=== PATIENT | female | born 1950 | race Caucasian/White ===

== ENCOUNTER 2020-08-06 12:46 | Inpatient (IN) | payer MEDICARE, OTHER ==
--- NOTE | 2020-08-06 13:35 | ED ---
General Adult HPI - General Chief complaint: Upper Respiratory Infection Stated complaint: Covid exposure, SOB Time Seen by Provider: 08/06/20 12:56 Source: patient, RN notes reviewed Mode of arrival: ambulatory Limitations: no limitations - History of Present Illness Initial comments: This is a 69-year-old female who was sent over for evaluation for multiple issues to percussion and fever cough shortness breath or past several days after exposure to Covid 19. Additionally she's had trouble with confusion and disorientation recently over last several weeks trouble with memory issues decreased oral intake today she also has some left arm pain which is intermittent sharp in nature she points to the lateral aspect of the upper arm over the tricep area. No medial tenderness no edema. She does states she had a cough with some clear phlegm. No other complaints or modifying factors at this time - Related Data Home Medications Medication Instructions Recorded Confirmed Levothyroxine Sodium [Synthroid] 175 mcg PO DAILY 06/25/19 08/06/20 Albuterol Inhaler [Ventolin Hfa 2 puff INHALATION RT-Q4H PRN 08/06/20 08/06/20 Inhaler] Fluticasone Nasal [place] [Flonase 2 spr EA NOSTRIL BID PRN 08/06/20 08/06/20 Nasal [place]] Allergies Allergy/AdvReac Type Severity Reaction Status Date / Time Penicillins Allergy Unknown Verified 08/06/20 14:58 Childhood Review of Systems ROS Statement: Those systems with pertinent positive or pertinent negative responses have been documented in the HPI. ROS Other: All systems not noted in ROS Statement are negative. Past Medical History Past Medical History: Asthma, Thyroid Disorder Additional Past Medical History / Comment(s): short term memory loss History of Any Multi-Drug Resistant Organisms: None Reported Past Surgical History: Cholecystectomy, Hysterectomy Past Anesthesia/Blood Transfusion Reactions: Motion Sickness Past Psychological History: Depression Smoking Status: Former smoker Past Alcohol Use History: Occasional Past Drug Use History: None Reported - Past Family History Mother Family Medical History: No Reported History General Exam - General Exam Comments Initial Comments: This a well-developed well-nourished awake alert oriented 3 female slightly slow to respond Limitations: no limitations General appearance: alert, in no apparent distress Head exam: Present: atraumatic, normocephalic, normal inspection Eye exam: Present: normal appearance, PERRL, EOMI. Absent: scleral icterus, conjunctival injection, periorbital swelling ENT exam: Present: mucous membranes dry Neck exam: Present: normal inspection. Absent: tenderness, meningismus, lymphadenopathy Respiratory exam: Present: normal lung sounds bilaterally. Absent: respiratory distress, wheezes, rales, rhonchi, stridor Cardiovascular Exam: Present: regular rate, normal rhythm, normal heart sounds. Absent: systolic murmur, diastolic murmur, rubs, gallop, clicks GI/Abdominal exam: Present: soft, normal bowel sounds. Absent: distended, tenderness, guarding, rebound, rigid Extremities exam: Present: normal inspection, full ROM, normal capillary refill. Absent: tenderness, pedal edema, joint swelling, calf tenderness Back exam: Present: normal inspection Neurological exam: Present: alert, oriented X3, CN II-XII intact Psychiatric exam: Present: normal affect, normal mood Skin exam: Present: warm, dry, intact, normal color. Absent: rash Course Vital Signs 08/06/20 08/06/20 08/06/20 12:47 15:00 15:39 Temperature 102.5 F H 102.9 F H Pulse Rate 80 90 Respiratory 22 20 Rate Blood Pressure 128/75 146/74 O2 Sat by Pulse 97 99 Oximetry 08/06/20 16:00 Temperature Pulse Rate 84 Respiratory 20 Rate Blood Pressure 147/75 O2 Sat by Pulse 96 Oximetry EKG Findings - EKG Results: EKG: interpreted by ELENA, sinus rhythm (Sinus rhythm rate 79. Interval 188 QRS duration 78 QT/QTC 374/428 nonspecific anterior configuration) Medical Decision Making - Medical Decision Making I did discuss Pfizer the patient family and with Dr. Adrian. Patient will be admitted - Lab Data Result diagrams: 08/06/20 13:57 08/06/20 13:57 Lab Results 08/06/20 08/06/20 08/06/20 Range/Units 12:58 13:57 13:57 WBC 4.3 (3.8-10.6) k/uL RBC 4.77 (3.80-5.40) m/uL Hgb 14.6 (11.4-16.0) gm/dL Hct 42.3 (34.0-46.0) % MCV 88.6 (80.0-100.0) fL MCH 30.6 (25.0-35.0) pg MCHC 34.5 (31.0-37.0) g/dL RDW 12.8 (11.5-15.5) % Plt Count 164 (150-450) k/uL MPV 8.2 Neutrophils % 73 % Lymphocytes % 19 % Monocytes % 5 % Eosinophils % 0 % Basophils % 1 % Neutrophils # 3.1 (1.3-7.7) k/uL Lymphocytes # 0.8 L (1.0-4.8) k/uL Monocytes # 0.2 (0-1.0) k/uL Eosinophils # 0.0 (0-0.7) k/uL Basophils # 0.1 (0-0.2) k/uL PT 10.7 (9.0-12.0) sec INR 1.0 (<1.2) APTT 27.9 (22.0-30.0) sec D-Dimer 0.42 (<0.60) mg/L FEU Sodium (137-145) mmol/L Potassium (3.5-5.1) mmol/L Chloride (98-107) mmol/L Carbon Dioxide (22-30) mmol/L Anion Gap mmol/L BUN (7-17) mg/dL Creatinine (0.52-1.04) mg/dL Est GFR (CKD-EPI)AfAm (>60 ml/min/1.73 sqM) Est GFR (CKD-EPI)NonAf (>60 ml/min/1.73 sqM) Glucose (74-99) mg/dL Plasma Lactic Acid Mitch (0.7-2.0) mmol/L Calcium (8.4-10.2) mg/dL Magnesium (1.6-2.3) mg/dL Total Bilirubin (0.2-1.3) mg/dL AST (14-36) U/L ALT (4-34) U/L Alkaline Phosphatase (38-126) U/L Lactate Dehydrogenase (313-618) U/L C-Reactive Protein (<10.0) mg/L Total Protein (6.3-8.2) g/dL Albumin (3.5-5.0) g/dL Coronavirus (PCR) Detected A (Not Detectd) Influenza Type A RNA (Not Detectd) Influenza Type B (PCR) (Not Detectd) 08/06/20 08/06/20 08/06/20 Range/Units 13:57 13:57 13:57 WBC (3.8-10.6) k/uL RBC (3.80-5.40) m/uL Hgb (11.4-16.0) gm/dL Hct (34.0-46.0) % MCV (80.0-100.0) fL MCH (25.0-35.0) pg MCHC (31.0-37.0) g/dL RDW (11.5-15.5) % Plt Count (150-450) k/uL MPV Neutrophils % % Lymphocytes % % Monocytes % % Eosinophils % % Basophils % % Neutrophils # (1.3-7.7) k/uL Lymphocytes # (1.0-4.8) k/uL Monocytes # (0-1.0) k/uL Eosinophils # (0-0.7) k/uL Basophils # (0-0.2) k/uL PT (9.0-12.0) sec INR (<1.2) APTT (22.0-30.0) sec D-Dimer (<0.60) mg/L FEU Sodium 134 L (137-145) mmol/L Potassium 4.3 (3.5-5.1) mmol/L Chloride 99 (98-107) mmol/L Carbon Dioxide 26 (22-30) mmol/L Anion Gap 9 mmol/L BUN 10 (7-17) mg/dL Creatinine 0.63 (0.52-1.04) mg/dL Est GFR (CKD-EPI)AfAm >90 (>60 ml/min/1.73 sqM) Est GFR (CKD-EPI)NonAf >90 (>60 ml/min/1.73 sqM) Glucose 146 H (74-99) mg/dL Plasma Lactic Acid Mitch 1.4 (0.7-2.0) mmol/L Calcium 9.4 (8.4-10.2) mg/dL Magnesium 1.5 L (1.6-2.3) mg/dL Total Bilirubin 0.4 (0.2-1.3) mg/dL AST 39 H (14-36) U/L ALT 27 (4-34) U/L Alkaline Phosphatase 50 (38-126) U/L Lactate Dehydrogenase 670 H (313-618) U/L C-Reactive Protein 59.1 H (<10.0) mg/L Total Protein 7.5 (6.3-8.2) g/dL Albumin 4.5 (3.5-5.0) g/dL Coronavirus (PCR) (Not Detectd) Influenza Type A RNA Not Detected (Not Detectd) Influenza Type B (PCR) Not Detected (Not Detectd) - Radiology Data Radiology results: report reviewed, image reviewed Disposition Clinical Impression: COVID-19, Viral pneumonia, Febrile illness, acute, Hypomagnesemia, Failure to thrive Disposition: ADMITTED IP TO THIS [facility] Condition: Fair Referrals: Princess Delvalle MD [Primary Care Provider] - 1-2 days
--- NOTE | 2020-08-06 13:51 | XR ---
EXAMINATION TYPE: XR chest 1V portable DATE OF EXAM: 08/06/2020 COMPARISON: NONE HISTORY: Shortness of breath and cough TECHNIQUE: Single frontal view of the chest is obtained. FINDINGS: There is questionable patchy density at the lung bases, no pleural effusion or pneumothora x seen. The cardiac silhouette size is within normal limits. The osseous structures are intact. IMPRESSION: Correlate for pneumonia
[2020-08-06] MEDS ORDERED: ACETAMINOPHEN TAB 325 MG TAB PO STA (14:14)
[2020-08-06 14:25] LABS: Basophils # (A) 0.1 k/uL (0-0.2); Basophils % (A) 1 %; Eosinophils % (A) 0 %; HCT 42.3 % (34.0-46.0); HGB 14.6 gm/dL (11.4-16.0); Lymphocytes # (A) 0.8 k/uL (1.0-4.8); Lymphocytes % (A) 19 %; MCH 30.6 pg (25.0-35.0); MCHC 34.5 g/dL (31.0-37.0); MCV 88.6 fL (80.0-100.0); Mean Platelet Volume 8.2; Monocytes # (A) 0.2 k/uL (0-1.0); Monocytes % (A) 5 %; Neutrophils # (A) 3.1 k/uL (1.3-7.7); Neutrophils % (A) 73 %; Platelet Count 164 k/uL (150-450); RBC 4.77 m/uL (3.80-5.40); RDW 12.8 % (11.5-15.5); WBC 4.3 k/uL (3.8-10.6)
[2020-08-06 14:40] LABS: D-Dimer 0.42 mg/L FEU (<0.60); Partial Thromboplastin Time 27.9 sec (22.0-30.0); Prothrombin Time 10.7 sec (9.0-12.0)
[2020-08-06 14:43] LABS: ALT 27 U/L (4-34); AST 39 U/L (14-36); African American GFR (CKD) >90 (>60 ml/min/1.73 sqM); Albumin 4.5 g/dL (3.5-5.0); Alkaline Phosphatase 50 U/L (38-126); Anion Gap 9 mmol/L; Blood Urea Nitrogen 10 mg/dL (7-17); C Reactive Protein 59.1 mg/L (<10.0); Calcium 9.4 mg/dL (8.4-10.2); Carbon Dioxide 26 mmol/L (22-30); Chloride 99 mmol/L (98-107); Glucose 146 mg/dL (74-99); LDH 670 U/L (313-618); Magnesium 1.5 mg/dL (1.6-2.3); Non-African American GFR(CKD) >90 (>60 ml/min/1.73 sqM); Potassium 4.3 mmol/L (3.5-5.1); Sodium 134 mmol/L (137-145); Total Bilirubin 0.4 mg/dL (0.2-1.3); Total Protein 7.5 g/dL (6.3-8.2)
--- NOTE | 2020-08-06 14:52 | CT ---
EXAMINATION TYPE: CT brain wo con DATE OF EXAM: 08/06/2020 COMPARISON: None HISTORY: altered mental status CT DLP: 1045.[address] of the brain was performed. The ventricles, basal cisterns and sulci overlying the cerebral convexities demonstrate mild enlargem ent. There is no evidence for intracranial hemorrhage or sulcal effacement. There is decreased attenuation about the periventricular white matter and deep white matter of both c erebral hemispheres, compatible with chronic small vessel ischemia. Differential diagnosis does inclu de demyelination. No mass effects are seen.No midline shift. Osseous calvarium is intact. If symptoms persist consider MRI. IMPRESSION: 1. Age related atrophic and chronic small vessel ischemic change without acute intracranial process s een at this time.
[2020-08-06] MEDS ORDERED: ONDANSETRON 4 MG/2 ML VIAL IVP STA (15:06)
[2020-08-06] MEDS ORDERED: MAGNESIUM SULFATE-D5W PMX 1 GM in DEXTROSE/WATER 1 100ML.BAG IVPB ONE (16:01)
[2020-08-06] MEDS ORDERED: NALOXONE 0.4 MG/ML 1 ML VIAL IV PRN (17:54)
[2020-08-06] MEDS ORDERED: FLUTICASONE 50MCG/SPRAY NASAL 16GM EA NOSTRIL PRN (17:56)
[2020-08-06] MEDS: SODIUM CHLORIDE 0.9% 1,000 ML IV SCH (18:40)
[2020-08-06] MEDS: ACETAMINOPHEN TAB 325 MG TAB PO PRN (21:39)
[2020-08-06 21:59] LABS: Ferritin 370.2 ng/mL (10.0-291.0)
[2020-08-06] MEDS ORDERED: ONDANSETRON 4 MG/2 ML VIAL IVP PRN (22:32)
[2020-08-06] MEDS: CYCLOBENZAPRINE 10 MG TAB PO PRN (23:10)
[2020-08-07] MEDS: LEVOTHYROXINE 88 MCG TAB PO SCH (06:15)
[2020-08-07 07:49] LABS: Appearance,Urine Clear (Clear); Bilirubin,Urine Negative (Negative); Blood,Urine Negative (Negative); Color,Urine Light Yellow; Glucose,Urine (UA) Negative (Negative); Ketones,Urine Negative (Negative); Leukocyte Esterase,Urine Negative (Negative); Nitrite,Urine Negative (Negative); PH, Urine 6.5 (5.0-8.0); Protein,Urine Negative (Negative); Specific Gravity,Urine 1.005 (1.001-1.035); Urobilinogen,Urine <2.0 mg/dL (<2.0)
[2020-08-07] MEDS: ACETAMINOPHEN TAB 325 MG TAB PO PRN ×3 (07:55→22:46)
[2020-08-07] MEDS: SODIUM CHLORIDE 0.9% 1,000 ML IV SCH ×2 (07:58→20:10)
[2020-08-07] MEDS ORDERED: AZITHROMYCIN 500 MG TAB PO STA (09:16)
[2020-08-07] MEDS: CHOLECALCIFEROL 25 MCG (1000 IU) TABLET PO SCH (11:11)
[2020-08-07] MEDS: DEXAMETHASONE SOD PHOSPHATE 10 MG/ML 1 ML VIAL IV SCH (11:12)
[2020-08-07] MEDS: ASCORBIC ACID 500 MG TAB PO SCH ×2 (11:12→20:12)
[2020-08-07] MEDS: CYCLOBENZAPRINE 10 MG TAB PO PRN ×2 (13:21→20:11)
[2020-08-07] MEDS: ALBUTEROL HFA INHALER INHALATION PRN (16:16)
--- NOTE | 2020-08-07 21:53 | P.HPIM ---
History of Present Illness H&P Date: 08/07/20 Chief Complaint: fever, weakness Sayra Londono is a 69 yo F with PMH of asthma, hypothyroidism who presented to the ED complaining of worsening weakness, fever and malaise. She had been feeling progressively more malaised and had become acutely confused, she had a telephone visit with her PCP and was instructed to come in to the ED. On presentation temp 102.5, tachypnea, labs significant for lymphopenia, CRP 60, LDH 670, COVID positive. CT head wnl. Review of Systems All systems: negative Constitutional: Reports fever, Reports malaise, Reports sweats, Reports weakness, Denies chills Eyes: denies blurred vision, denies pain Ears, nose, mouth and throat: Denies headache, Denies sore throat Cardiovascular: Denies chest pain, Denies shortness of breath Respiratory: Reports cough Gastrointestinal: Denies abdominal pain, Denies diarrhea, Denies nausea, Denies vomiting Genitourinary: Denies dysuria, Denies hematuria Musculoskeletal: Denies myalgias Integumentary: Denies pruritus, Denies rash Neurological: Reports confusion, Denies numbness, Denies weakness Psychiatric: Denies anxiety, Denies depression Endocrine: Denies fatigue, Denies weight change Past Medical History Past Medical History: Asthma, Eye Disorder, GERD/Reflux, Memory Impairment, Thyroid Disorder Additional Past Medical History / Comment(s): Short term memory loss-recently had MRI to try to diagnose, bronchitis, hypothyroid, muscle tightness/knots bilateral shoulders, pain in L arm past couple weeks, bilateral carpal tunnel syndrome, "borderline DM", UTI, occasional stress incontinence, constipation, arnoldo believes pt was told years ago she has macular degeneration but it has not progressed. History of Any Multi-Drug Resistant Organisms: None Reported Past Surgical History: Cholecystectomy, Hysterectomy, Tonsillectomy Additional Past Surgical History / Comment(s): Colonoscopy, bilateral cataract removals. Past Anesthesia/Blood Transfusion Reactions: No Reported Reaction, Motion Sickn ess Smoking Status: Former smoker - Past Family History Mother Family Medical History: COPD, Dementia Additional Family Medical History / Comment(s): Mother was a smoker Father Family Medical History: Hearing Disorder / Deafness Additional Family Medical History / Comment(s): Father was murdered when he was 55 yrs old. Medications and Allergies Home Medications Medication Instructions Recorded Confirmed Type Levothyroxine Sodium [Synthroid] 175 mcg PO DAILY 06/25/19 08/06/20 History Albuterol Inhaler [Ventolin Hfa 2 puff INHALATION RT-Q4H PRN 08/06/20 08/06/20 History Inhaler] Fluticasone Nasal [place] [Flonase 2 spr EA NOSTRIL BID PRN 08/06/20 08/06/20 History Nasal [place]] Allergies Allergy/AdvReac Type Severity Reaction Status Date / Time Penicillins Allergy Unknown Verified 08/06/20 14:58 Childhood Physical Exam Vitals: Vital Signs Temp Pulse Pulse Resp BP BP Pulse Ox 08/07/20 20:00 65 18 08/07/20 14:46 98.9 F 65 18 132/72 95 08/07/20 13:00 95 08/07/20 08:00 99 F 62 18 122/74 93 L 08/07/20 06:19 98.6 F 70 18 124/61 95 08/07/20 02:31 99.4 F 75 18 130/60 94 L Intake and Output 08/07/20 08/07/20 08/07/20 06:59 14:59 22:59 Other: Voiding Method Toilet Toilet Weight 106.594 kg General: elderly, frail, diaphoretic, NAD. Vitals reviewed Eyes: PERRL, EOMI, conjunctiva normal HENT: normocephalic, mucus membranes moist Neck: supple, no JVD Lungs: normal respiratory effort, no wheezes or rales CV: Regular rate and rhythm, no murmur. Peripheral pulses 2+ Abdomen: soft, nondistended, no organomegaly Lymph: no cervical or axillary LAD Skin: warm and dry. Neuro: Impaired memory, CN II-XII intact Results CBC & Chem 7: 08/06/20 13:57 08/06/20 13:57 Labs: Abnormal Lab Results - Last 24 Hours (Table) 08/06/20 Range/Units 13:57 Ferritin 370.2 H (10.0-291.0) ng/mL Microbiology - Last 24 Hours (Table) 08/06/20 13:57 Blood Culture - Preliminary Blood No Growth after 24 hours 08/06/20 13:57 Blood Culture - Preliminary Blood No Growth after 24 hours Thrombosis Risk Factor Assmnt - Choose All That Apply Each Factor Represents 1 point: Serious lung disease incl. pneumonia (< 1month) Other Risk Factors: Yes Each Risk Factor Represents 2 Points: Age 61-74 years Other congenital or acquired thrombophilia - If yes, enter type in comment: No Thrombosis Risk Factor Assessment Total Risk Factor Score: 3 Thrombosis Risk Factor Assessment Level: Moderate Risk Assessment and Plan (1) Sepsis due to severe acute respiratory syndrome coronavirus 2 (SARS-CoV-2) Current Visit: Yes Status: Acute Code(s): U07.1 - COVID-19; A41.89 - OTHER SPECIFIED SEPSIS SNOMED Code(s): 312541925 (2) Severe sepsis Current Visit: Yes Status: Acute Code(s): A41.9 - SEPSIS, UNSPECIFIED ORGANISM; R65.20 - SEVERE SEPSIS WITHOUT SEPTIC SHOCK SNOMED Code(s): 68887293 (3) Altered mental state Current Visit: Yes Status: Acute Code(s): R41.82 - ALTERED MENTAL STATUS, UNSPECIFIED SNOMED Code(s): 388687609 (4) Metabolic encephalopathy Current Visit: Yes Status: Acute Code(s): G93.41 - METABOLIC ENCEPHALOPATHY SNOMED Code(s): 51551082 Plan: 1. Severe sepsis secondary to COVID 19. Vit C, vit D, dexamethasone, azithromycin. Lovenox for DVT prophylaxis 2. Metabolic encephalopathy. IV fluids, tylenol, treat underlying condition 3. Hypothyroidism. Continue synthroid 4. Asthma. Continue albuterol inhaler. Monitor O2
[2020-08-08] MEDS: LEVOTHYROXINE 88 MCG TAB PO SCH (05:21)
[2020-08-08] MEDS: CYCLOBENZAPRINE 10 MG TAB PO PRN ×2 (07:45→20:40)
[2020-08-08] MEDS: DEXAMETHASONE SOD PHOSPHATE 10 MG/ML 1 ML VIAL IV SCH (07:45)
[2020-08-08] MEDS: ENOXAPARIN 40 MG/0.4 ML SYRINGE SQ SCH (07:45)
[2020-08-08] MEDS: CHOLECALCIFEROL 25 MCG (1000 IU) TABLET PO SCH (07:45)
[2020-08-08] MEDS: SODIUM CHLORIDE 0.9% 1,000 ML IV SCH (07:45)
[2020-08-08] MEDS: ASCORBIC ACID 500 MG TAB PO SCH ×2 (07:45→20:39)
[2020-08-08] MEDS: AZITHROMYCIN 250 MG TAB PO SCH (09:37)
--- NOTE | 2020-08-08 14:07 | P.PN ---
Subjective Progress Note Date: 08/08/20 Sayra Londono is a 69 yo F with PMH of asthma, hypothyroidism who presented to the ED complaining of worsening weakness, fever and malaise. She had been feeling progressively more malaised and had become acutely confused, she had a telephone visit with her PCP and was instructed to come in to the ED. On presentation temp 102.5, tachypnea, labs significant for lymphopenia, CRP 60, LDH 670, COVID positive. CT head wnl. 08/09/19 maintaining O2 sats in the 90s on room air. Occasional nonproductive cough. Good diet intake with no nausea vomiting or diarrhea. Worsened short- term memory loss persists. Mild anxiety, hypertension. Afebrile. Denies chest pain, palpitations or worsening shortness of breath. Objective - Vital Signs Vital signs: Vital Signs Temp 97.6 F 08/08/20 13:51 Pulse 82 08/08/20 13:51 Resp 17 08/08/20 13:51 BP 171/88 08/08/20 13:51 Pulse Ox 95 08/08/20 13:51 Intake & Output 08/07/20 08/08/20 08/08/20 18:59 06:59 18:59 Weight 106.594 kg Other: Voiding Method Toilet Toilet # Voids 1 - Exam General: elderly, frail, sitting up at side of bed, NAD. Vitals reviewed Eyes: PERRL, EOMI, conjunctiva normal HENT: normocephalic, mucus membranes moist Lungs: normal respiratory effort, no wheezes or rales CV: Regular rate and rhythm, no murmur. Peripheral pulses 2+ Abdomen: soft, nondistended, no organomegaly,+BS Skin: warm and dry. Neuro: Impaired memory, CN II-XII intact - Labs CBC & Chem 7: 08/06/20 13:57 08/06/20 13:57 Labs: Microbiology - Last 24 Hours (Table) 08/06/20 13:57 Blood Culture - Preliminary Blood No Growth after 24 hours 08/06/20 13:57 Blood Culture - Preliminary Blood No Growth after 24 hours Assessment and Plan Assessment: 1. Severe sepsis secondary to COVID 19 infection 2. Acute Metabolic encephalopathy secondary to the above in a patient with history of mild memory impairment-type unknown 3. Hypothyroidism. 4. Chronic Asthma. Plan: Continue on current medication regime ,monitoring and symptomatic treatment. Good diet intake, hypertensive, discontinuing IV fluids. Continue Covid regimen;Vit C, vit D, dexamethasone, azithromycin , albuterol inhaler with Lovenox for DVT prophylaxis. Discharge planning in progress for tomorrow. The impression and plan of care has been dictated as directed. : I performed a history and examination of this patient, discussed the same with the dictator. I agree with the dictator's note ,documented as a scribe. Any additional findings or plans will be noted.
[2020-08-08] MEDS: ZINC SULFATE 220 MG CAP PO SCH (16:57)
[2020-08-09] MEDS: LEVOTHYROXINE 88 MCG TAB PO SCH (05:24)
[2020-08-09] MEDS: CHOLECALCIFEROL 25 MCG (1000 IU) TABLET PO SCH (08:35)
[2020-08-09] MEDS: ASCORBIC ACID 500 MG TAB PO SCH (08:35)
[2020-08-09] MEDS: DEXAMETHASONE SOD PHOSPHATE 10 MG/ML 1 ML VIAL IV SCH (08:35)
[2020-08-09] MEDS: AZITHROMYCIN 250 MG TAB PO SCH (08:35)
[2020-08-09] MEDS: ZINC SULFATE 220 MG CAP PO SCH (08:35)
[2020-08-09] MEDS: ENOXAPARIN 40 MG/0.4 ML SYRINGE SQ SCH (08:36)
[2020-08-09] MEDS: ALBUTEROL HFA INHALER INHALATION PRN (08:48)
[2020-08-09 10:21] VITALS: PULSE 88
[2020-08-09 11:41] LABS: African American GFR (CKD) 101.7 (60.0-200.0); Anion Gap 8.5 mmol/L (4.00-12.00); BUN/Creat Ratio 15.71 Ratio (12.00-20.00); Calcium 9.4 mg/dL (8.7-10.3); Carbon Dioxide 27.5 mmol/L (21.6-31.8); Non-African American GFR(CKD) 87.8 (60.0-200.0); Potassium 4.2 mmol/L (3.5-5.5)
[2020-08-09 13:39] VITALS: BP 148/77; RESP 17; TEMP 99
--- NOTE | 2020-08-09 14:51 | P.DS ---
Providers Date of admission: 08/06/20 17:54 Expected date of discharge: 08/09/20 Attending physician: Pito Adrian MD Primary care physician: [facility] Course: 69 yo F with PMH of asthma, hypothyroidism who presented to the ED complaining of worsening weakness, fever and malaise. She had been feeling progressively more malaised and had become acutely confused, she had a telephone visit with her PCP and was instructed to come in to the ED. On presentation temp 102.5, tachypnea, labs significant for lymphopenia, CRP 60, LDH 670, COVID positive. CT head wnl. 1. Severe sepsis secondary to COVID 19. Vit C, vit D, dexamethasone, azithromycin. Lovenox for DVT prophylaxis 2. Metabolic encephalopathy. IV fluids, tylenol, treat underlying condition 3. Hypothyroidism. Continue synthroid 4. Asthma. Continue albuterol inhaler. Monitor O2 08/08/20 maintaining O2 sats in the 90s on room air. Occasional nonproductive cough. Good diet intake with no nausea vomiting or diarrhea. Worsened short- term memory loss persists. Mild anxiety, hypertension. Afebrile. Denies chest pain, palpitations or worsening shortness of breath. 08/09/2020; patient is saturating well on room air greater than 94%; we will continue with oral azithromycin to complete a course of total of 7 days and discharge on oral dexamethasone; patient will continue zinc sulfate, vitamin D and vitamin C; discharge home in stable condition Patient Condition at Discharge: Fair Plan - Discharge Summary Discharge Rx Participant: No New Discharge Prescriptions: New Cholecalciferol [Vitamin D3 (25 Mcg = 1000 Iu)] 50 mcg PO DAILY tablet Azithromycin [Zithromax] 250 mg PO DAILY #5 tab Dexamethasone 6 mg PO AC-BRKFST #7 tablet Zinc Sulfate [Orazinc] 220 mg PO DAILY #0 cap Ascorbic Acid [Vitamin C] 500 mg PO BID tab Continue Levothyroxine Sodium [Synthroid] 175 mcg PO DAILY Fluticasone Nasal [place] [Flonase Nasal [place]] 2 spr EA NOSTRIL BID PRN PRN Reason: Allergy Symptoms Albuterol Inhaler [Ventolin Hfa Inhaler] 2 puff INHALATION RT-Q4H PRN PRN Reason: Shortness Of Breath Discharge Medication List Levothyroxine Sodium [Synthroid] 175 mcg PO DAILY 06/25/19 [History] Albuterol Inhaler [Ventolin Hfa Inhaler] 2 puff INHALATION RT-Q4H PRN 08/06/20 [History] Fluticasone Nasal [place] [Flonase Nasal [place]] 2 spr EA NOSTRIL BID PRN 08/06/20 [History] Ascorbic Acid [Vitamin C] 500 mg PO BID tab 08/09/20 [Rx] Azithromycin [Zithromax] 250 mg PO DAILY #5 tab 08/09/20 [Rx] Cholecalciferol [Vitamin D3 (25 Mcg = 1000 Iu)] 50 mcg PO DAILY tablet 08/09/20 [Rx] Dexamethasone 6 mg PO AC-BRKFST #7 tablet 08/09/20 [Rx] Zinc Sulfate [Orazinc] 220 mg PO DAILY #0 cap 08/09/20 [Rx] Follow up Appointment(s)/Referral(s): Pito Adrian MD [STAFF PHYSICIAN] - 1 Week Princess Delvalle MD [Primary Care Provider] - 1-2 days Patient Instructions/Handouts: Coronavirus Disease 2019 (COVID-19) Discharge Disposition: HOME SELF-CARE
== END 2020-08-09 16:05 | disposition home or self-care (01) | DRG 871 ==
LOC: EC 12:46 → 4SSUR 17:54
PROVIDERS: ADMIT Family Medicine; ATTEND Family Medicine
DX: A41.89 Other specified sepsis (principal); U07.1 COVID-19; J12.82 Pneumonia due to coronavirus disease 2019; G93.41 Metabolic encephalopathy; R65.20 Severe sepsis without septic shock; R62.7 Adult failure to thrive; D72.810 Lymphocytopenia; E83.42 Hypomagnesemia; E03.9 Hypothyroidism, unspecified; J45.909 Unspecified asthma, uncomplicated; I10 Essential (primary) hypertension; F41.9 Anxiety disorder, unspecified; R73.03 Prediabetes; K59.00 Constipation, unspecified; H35.30 Unspecified macular degeneration; N39.3 Stress incontinence (female) (male); M79.602 Pain in left arm; R41.3 Other amnesia; K21.9 Gastro-esophageal reflux disease without esophagitis; G56.03 Carpal tunnel syndrome, bilateral upper limbs; Z79.890 Hormone replacement therapy; Z79.899 Other long term (current) drug therapy; Z87.891 Personal history of nicotine dependence; Z90.49 Acquired absence of other specified parts of digestive tract; Z90.710 Acquired absence of both cervix and uterus; Z87.19 Personal history of other diseases of the digestive system; Z87.42 Personal history of other diseases of the female genital tract; Z86.59 Personal history of other mental and behavioral disorders; Z87.440 Personal history of urinary (tract) infections; Z98.42 Cataract extraction status, left eye; Z98.41 Cataract extraction status, right eye; Z98.890 Other specified postprocedural states; Z88.0 Allergy status to penicillin; Z82.5 Family history of asthma and other chronic lower respiratory diseases; Z81.8 Family history of other mental and behavioral disorders; Z81.2 Family history of tobacco abuse and dependence
CPT/HCPCS: 36415; 70450; 71045; 80048; 80053; 81003; 82728; 83605; 83615; 83735; 84145; 85025; 85379; 85610; 85730; 86140; 87040; 87502; 87635; 93005; 94640; 96365; 96375; 99285

== ENCOUNTER 2023-03-26 04:30 | Emergency (ER) | payer MEDICARE ==
[2023-03-26 04:46] VITALS: TEMP 98.1
[2023-03-26] MEDS ORDERED: MORPHINE SULFATE 4 MG/ML SYRINGE IVP STA (05:28)
[2023-03-26] MEDS ORDERED: SODIUM CHLORIDE 0.9% 1,000 ML IV ONE (05:28)
[2023-03-26] MEDS ORDERED: KETOROLAC 15 MG/ML 1 ML VIAL IVP STA (05:42)
[2023-03-26 05:43] LABS: Basophils % (A) 1 %; Eosinophils # (A) 0.3 k/uL (0-0.7); Eosinophils % (A) 4 %; HCT 40.5 % (34.0-46.0); HGB 13.9 gm/dL (11.4-16.0); Lymphocytes # (A) 1.6 k/uL (1.0-4.8); Lymphocytes % (A) 25 %; MCH 31.1 pg (25.0-35.0); MCHC 34.3 g/dL (31.0-37.0); MCV 90.9 fL (80.0-100.0); Mean Platelet Volume 8.2; Monocytes # (A) 0.6 k/uL (0-1.0); Monocytes % (A) 9 %; Neutrophils # (A) 3.8 k/uL (1.3-7.7); Neutrophils % (A) 58 %; Platelet Count 196 k/uL (150-450); RBC 4.45 m/uL (3.80-5.40); RDW 12.5 % (11.5-15.5); WBC 6.6 k/uL (3.8-10.6)
[2023-03-26 05:46] LABS: ALT 20 U/L (4-34); AST 23 U/L (14-36); African American GFR (CKD) >90 (>60 ml/min/1.73 sqM); Albumin 4.3 g/dL (3.5-5.0); Alkaline Phosphatase 45 U/L (38-126); Anion Gap 9 mmol/L; Blood Urea Nitrogen 8 mg/dL (7-17); Calcium 9.7 mg/dL (8.4-10.2); Carbon Dioxide 27 mmol/L (22-30); Chloride 101 mmol/L (98-107); Glucose 111 mg/dL (74-99); Lipase 94 U/L (23-300); Non-African American GFR(CKD) >90 (>60 ml/min/1.73 sqM); Potassium 4.4 mmol/L (3.5-5.1); Sodium 137 mmol/L (137-145); Total Bilirubin 0.5 mg/dL (0.2-1.3); Total Protein 7.2 g/dL (6.3-8.2)
[2023-03-26 07:20] LABS: Appearance,Urine Clear (Clear); Bilirubin,Urine Negative (Negative); Blood,Urine Negative (Negative); Color,Urine Colorless; Glucose,Urine (UA) Negative (Negative); Ketones,Urine Negative (Negative); Leukocyte Esterase,Urine Negative (Negative); Nitrite,Urine Negative (Negative); PH, Urine 6.5 (5.0-8.0); Protein,Urine Negative (Negative); Specific Gravity,Urine 1.002 (1.001-1.035); Urobilinogen,Urine <2.0 mg/dL (<2.0)
--- NOTE | 2023-03-26 07:35 | ED ---
Abdominal Pain HPI - General Source: patient, family Mode of arrival: ambulatory <Erin Meyer - Last Filed: 03/26/23 07:32> <Jai Landeros - Last Filed: 03/26/23 08:04> - General Chief Complaint: Abdominal Pain Stated Complaint: Pain lower left side and back Time Seen by Provider: 03/26/23 04:46 - History of Present Illness Initial Comments: 72-year-old female with past medical history of dementia presents emergency department reporting to left lower quadrant abdominal pain. Her caregiver at bedside provides history. States that she will have frequent constipation. She will take docusate and have a bowel movement. Patient was constipated and took docusate yesterday. She ended up having a large bowel movement and felt better. Last night she began having some left lower quadrant abdominal pain which is sharp and stabbing. She denies any provocative factors. States is constant. She has no nausea or vomiting. No fevers. No dysuria, hematuria or difficulty voiding. She is status post cholecystectomy and hysterectomy. She did not take anything for pain before coming in. No other alleviating, precipitating or modifying factors (Erin Meyer) - Related Data Home Medications Medication Instructions Recorded Confirmed Levothyroxine Sodium [Synthroid] 175 mcg PO DAILY 06/25/19 08/06/20 Albuterol Inhaler [Ventolin Hfa 2 puff INHALATION RT-Q4H PRN 08/06/20 08/06/20 Inhaler] Fluticasone Nasal [place] [Flonase 2 spr EA NOSTRIL BID PRN 08/06/20 08/06/20 Nasal [place]] Previous Rx's Medication Instructions Recorded Ascorbic Acid [Vitamin C] 500 mg PO BID tab 08/09/20 Azithromycin [Zithromax] 250 mg PO DAILY #5 tab 08/09/20 Cholecalciferol [Vitamin D3 (25 50 mcg PO DAILY tablet 08/09/20 Mcg = 1000 Iu)] Zinc Sulfate [Orazinc] 220 mg PO DAILY #0 cap 08/09/20 dexAMETHasone [Dexamethasone] 6 mg PO AC-BRKFST #7 tablet 08/09/20 Dicyclomine [Bentyl] 10 mg PO QID PRN #10 tablet 03/26/23 Allergies Allergy/AdvReac Type Severity Reaction Status Date / Time Penicillins Allergy Unknown Verified 03/26/23 04:41 Childhood Review of Systems ROS Other: All systems not noted in ROS Statement are negative. <JesusyenniErin Kari - Last Filed: 03/26/23 07:32> ROS Other: All systems not noted in ROS Statement are negative. <LanderosJai - Last Filed: 03/26/23 08:04> ROS Statement: Those systems with pertinent positive or pertinent negative responses have been documented in the HPI. Past Medical History Past Medical History: Asthma, Eye Disorder, GERD/Reflux, Memory Impairment, Thyroid Disorder Additional Past Medical History / Comment(s): Short term memory loss-recently had MRI to try to diagnose, bronchitis, hypothyroid, muscle tightness/knots bilateral shoulders, pain in L arm past couple weeks, bilateral carpal tunnel syndrome, "borderline DM", UTI, occasional stress incontinence, constipation, arnoldo believes pt was told years ago she has macular degeneration but it has not progressed. History of Any Multi-Drug Resistant Organisms: None Reported Past Surgical History: Cholecystectomy, Hysterectomy, Tonsillectomy Additional Past Surgical History / Comment(s): Colonoscopy, bilateral cataract removals. Past Anesthesia/Blood Transfusion Reactions: No Reported Reaction, Motion Sickness Past Psychological History: Depression Smoking Status: Former smoker Past Alcohol Use History: None Reported Past Drug Use History: None Reported - Past Family History Mother Family Medical History: COPD, Dementia Additional Family Medical History / Comment(s): Mother was a smoker Father Family Medical History: Hearing Disorder / Deafness Additional Family Medical History / Comment(s): Father was murdered when he was 55 yrs old. <Erin Meyer - Last Filed: 03/26/23 07:32> General Exam General appearance: alert, in no apparent distress Head exam: Present: atraumatic, normocephalic, normal inspection Eye exam: Present: normal appearance, PERRL, EOMI. Absent: scleral icterus, conjunctival injection, periorbital swelling ENT exam: Present: normal exam, mucous membranes moist Neck exam: Present: normal inspection. Absent: tenderness, meningismus, lymphadenopathy Respiratory exam: Present: normal lung sounds bilaterally. Absent: respiratory distress, wheezes, rales, rhonchi, stridor Cardiovascular Exam: Present: regular rate, normal rhythm, normal heart sounds. Absent: systolic murmur, diastolic murmur, rubs, gallop, clicks GI/Abdominal exam: Present: soft, tenderness (Left lower quadrant), normal bowel sounds. Absent: distended, guarding, rebound, rigid Extremities exam: Present: normal inspection, full ROM, normal capillary refill. Absent: tenderness, pedal edema, joint swelling, calf tenderness Back exam: Present: normal inspection Neurological exam: Present: alert, oriented X3, CN II-XII intact Psychiatric exam: Present: normal affect, normal mood Skin exam: Present: warm, dry, intact, normal color. Absent: rash <Erin Meyer - Last Filed: 03/26/23 07:32> Course Vital Signs 03/26/23 03/26/23 03/26/23 04:37 06:02 07:45 Temperature 98.1 F Pulse Rate 70 68 80 Respiratory 18 18 16 Rate Blood Pressure 180/81 165/81 140/80 O2 Sat by Pulse 100 100 98 Oximetry Medical Decision Making - Lab Data Result diagrams: 03/26/23 05:18 03/26/23 05:18 <Erin Meyer - Last Filed: 03/26/23 07:32> - Lab Data Result diagrams: 03/26/23 05:18 03/26/23 05:18 <Jai Landeros - Last Filed: 03/26/23 08:04> - Medical Decision Making Was pt. sent in by a medical professional or institution (ANN Pablo, RADIOLOGIC TECHNOLOGY TEACHER, urgent care, hospital, or [place] health care facility...) When possible be specific @ -No Did you speak to anyone other than the patient for history (EMS, parent, family, police, friend...)? What history was obtained from this source @ -Fire Extinguisher Installer helps provide history Did you review nursing and triage notes (agree or disagree)? Why? @ -I reviewed and agree with nursing and triage notes Were old charts reviewed (outside hosp., previous admission, EMS record, old EKG, old radiological studies, urgent care reports/EKG's, [place] health care facility records)? Report findings @ -No old charts were reviewed Differential Diagnosis (chest pain, altered mental status, abdominal pain women, abdominal pain men, vaginal bleeding, weakness, fever, dyspnea, syncope, headache, dizziness, GI bleed, back pain, seizure, CVA, palpatations, mental health, musculoskeletal)? @ -Differential Abdominal Pain Women: Appendicitis, Cholecystitis, diverticulosis, ischemic bowel, pancreatitis, hepatitis, UTI, gastroenteritis, AAA, incarcerated hernia, bowel obstruction, constipation, inflammatory bowel, hepatitis, peptic ulcer disease, splenic infarction, perforated viscus, vulvitis, ovarian torsion, PID, kidney stone, placenta abruption, this is not meant to be an all-inclusive list EKG interpreted by me (3pts min.). @ -Not done X-rays interpreted by me (1pt min.). @ -None done CT interpreted by me (1pt min.). @ -Awaiting read U/S interpreted by me (1pt. min.). @ -None done What testing was considered but not performed or refused? (CT, X-rays, U/S, labs)? Why? @ -None What meds were considered but not given or refused? Why? @ -None Did you discuss the management of the patient with other professionals (professionals i.e. , PA, RADIOLOGIC TECHNOLOGY TEACHER, lab, RT, psych nurse, social economist, battery parts assembler, teacher, senior escrow officer, correctional counselor/case manager)? Give summary @ -Spoke with Dr. Landeros will take over care of the patient Was smoking cessation discussed for >3mins.? @ -No Was critical care preformed (if so, how long)? @ -No Were there social determinants of health that impacted care today? How? (Homelessness, low income, unemployed, alcoholism, drug addiction, duff sportation, low edu. Level, literacy, decrease access to med. care, usp, rehab)? @ -No Was there de-escalation of care discussed even if they declined (Discuss DNR or withdrawal of care, Hospice)? DNR status @ -No What co-morbidities impacted this encounter? (DM, HTN, Smoking, COPD, CAD, Cancer, CVA, ARF, Chemo, Hep., AIDS, mental health diagnosis, sleep apnea, morbid obesity)? @ -Dementia Was patient admitted / discharged? Hospital course, mention meds given and route, prescriptions, significant lab abnormalities, going to OR and other pertinent info. @ -Upon arrival patient was placed into room 4. History and physical exam was performed. IV is established. She is given Toradol for pain control. Laboratory studies were conducted. Patient does go for CT. CT pending at this time. Patient is signed out to Dr. Landeros Undiagnosed new problem with uncertain prognosis? @ -Yes Drug Therapy requiring intensive monitoring for toxicity (Heparin, Nitro, Insulin, Cardizem)? @ -No Were any procedures done? @ -No Diagnosis/symptom? @ -Acute left lower quadrant abdominal pain Acute, or Chronic, or Acute on Chronic? @ -Acute Uncomplicated (without systemic symptoms) or Complicated (systemic symptoms)? @ -Complicated Side effects of treatment? @ -No Exacerbation, Progression, or Severe Exacerbation? @ -No Poses a threat to life or bodily function? How? (Chest pain, [place], [place], pneumonia, PE, COPD, DKA, ARF, appy, cholecystitis, CVA, Diverticulitis, Homicidal, Suicidal, threat to staff... and all critical care pts) @ -No (Erin Meyer) Patient reevaluated and resting comfortably in bed. Abdomen soft and nontender. Patient and collator hand updated on results and plan. CT report reviewed. CT report with minimal inflammation, unclear exact etiology. No fever no white count. Patient be discharged with follow-up with primary care physician and return if worse. (Jai Landeros) - Lab Data Lab Results 03/26/23 03/26/23 03/26/23 Range/Units 05:18 05:18 05:18 WBC 6.6 (3.8-10.6) k/uL RBC 4.45 (3.80-5.40) m/uL Hgb 13.9 (11.4-16.0) gm/dL Hct 40.5 (34.0-46.0) % MCV 90.9 (80.0-100.0) fL MCH 31.1 (25.0-35.0) pg MCHC 34.3 (31.0-37.0) g/dL RDW 12.5 (11.5-15.5) % Plt Count 196 (150-450) k/uL MPV 8.2 Neutrophils % 58 % Lymphocytes % 25 % Monocytes % 9 % Eosinophils % 4 % Basophils % 1 % Neutrophils # 3.8 (1.3-7.7) k/uL Lymphocytes # 1.6 (1.0-4.8) k/uL Monocytes # 0.6 (0-1.0) k/uL Eosinophils # 0.3 (0-0.7) k/uL Basophils # 0.0 (0-0.2) k/uL Sodium 137 (137-145) mmol/L Potassium 4.4 (3.5-5.1) mmol/L Chloride 101 (98-107) mmol/L Carbon Dioxide 27 (22-30) mmol/L Anion Gap 9 mmol/L BUN 8 (7-17) mg/dL Creatinine 0.56 (0.52-1.04) mg/dL Est GFR (CKD-EPI)AfAm >90 (>60 ml/min/1.73 sqM) Est GFR (CKD-EPI)NonAf >90 (>60 ml/min/1.73 sqM) Glucose 111 H (74-99) mg/dL Plasma Lactic Acid Mitch 1.3 (0.7-2.0) mmol/L Calcium 9.7 (8.4-10.2) mg/dL Total Bilirubin 0.5 (0.2-1.3) mg/dL AST 23 (14-36) U/L ALT 20 (4-34) U/L Alkaline Phosphatase 45 (38-126) U/L Total Protein 7.2 (6.3-8.2) g/dL Albumin 4.3 (3.5-5.0) g/dL Lipase 94 (23-300) U/L Urine Color Urine Appearance (Clear) Urine pH (5.0-8.0) Ur Specific [place] (1.001-1.035) Urine Protein (Negative) Urine Glucose (UA) (Negative) Urine Ketones (Negative) Urine Blood (Negative) Urine Nitrite (Negative) Urine Bilirubin (Negative) Urine Urobilinogen (<2.0) mg/dL Ur Leukocyte Esterase (Negative) 03/26/23 Range/Units 05:18 WBC (3.8-10.6) k/uL RBC (3.80-5.40) m/uL Hgb (11.4-16.0) gm/dL Hct (34.0-46.0) % MCV (80.0-100.0) fL MCH (25.0-35.0) pg MCHC (31.0-37.0) g/dL RDW (11.5-15.5) % Plt Count (150-450) k/uL MPV Neutrophils % % Lymphocytes % % Monocytes % % Eosinophils % % Basophils % % Neutrophils # (1.3-7.7) k/uL Lymphocytes # (1.0-4.8) k/uL Monocytes # (0-1.0) k/uL Eosinophils # (0-0.7) k/uL Basophils # (0-0.2) k/uL Sodium (137-145) mmol/L Potassium (3.5-5.1) mmol/L Chloride (98-107) mmol/L Carbon Dioxide (22-30) mmol/L Anion Gap mmol/L BUN (7-17) mg/dL Creatinine (0.52-1.04) mg/dL Est GFR (CKD-EPI)AfAm (>60 ml/min/1.73 sqM) Est GFR (CKD-EPI)NonAf (>60 ml/min/1.73 sqM) Glucose (74-99) mg/dL Plasma Lactic Acid Mitch (0.7-2.0) mmol/L Calcium (8.4-10.2) mg/dL Total Bilirubin (0.2-1.3) mg/dL AST (14-36) U/L ALT (4-34) U/L Alkaline Phosphatase (38-126) U/L Total Protein (6.3-8.2) g/dL Albumin (3.5-5.0) g/dL Lipase (23-300) U/L Urine Color Colorless Urine Appearance Clear (Clear) Urine pH 6.5 (5.0-8.0) Ur Specific [place] 1.002 (1.001-1.035) Urine Protein Negative (Negative) Urine Glucose (UA) Negative (Negative) Urine Ketones Negative (Negative) Urine Blood Negative (Negative) Urine Nitrite Negative (Negative) Urine Bilirubin Negative (Negative) Urine Urobilinogen <2.0 (<2.0) mg/dL Ur Leukocyte Esterase Negative (Negative) Disposition <Erin Meyer - Last Filed: 03/26/23 07:32> Is patient prescribed a controlled substance at d/c from ED?: No Time of Disposition: 08:00 <Jai Landeros - Last Filed: 03/26/23 08:04> Clinical Impression: Abdominal pain Disposition: HOME SELF-CARE Condition: Stable Instructions (If sedation given, give patient instructions): Abdominal Pain (ED) Additional Instructions: Please do follow-up with your primary care physician in the next day or 2 for recheck. Return for fever, increased pain, vomiting, worsening or changing symptoms or any other concerns. Prescription sent to pharmacy. Prescriptions: Dicyclomine [Bentyl] 10 mg PO QID PRN #10 tablet PRN Reason: Pain Referrals: Shu Senior DO [Primary Care Provider] - 1-2 days
--- NOTE | 2023-03-26 07:43 | CT ---
EXAMINATION TYPE: CT abdomen pelvis w con DATE OF EXAM: 03/26/2023 COMPARISON: NONE HISTORY: 72-year-old female LLQ pain TECHNIQUE: Contiguous axial scanning of the abdomen and pelvis following administration of 100 ml Iso nataly 300 IV contrast. Delayed images through the kidneys and coronal/sagittal reconstructions perform ed. CT DLP: 1400.6 mGycm Automated exposure control for dose reduction was used. FINDINGS: The heart is upper limits of normal in size. Respiratory motion at the visualized lower [place] gs. No pleural effusion. There is a tiny hiatal hernia. No focal liver lesion or biliary ductal dilatation. Portal venous system is patent. Gallbladder appea rs to be absent. Adrenal glands, kidneys, spleen, and pancreas within normal limits. Mild atherosclerotic calcifications infrarenal abdominal aorta. No dilated small bowel, free fluid, or free air. No mesenteric or retroperitoneal lymphadenopathy. Suspect visualization of a short segment and normal appendix. There is moderate stool in the right si de of the colon and mild elsewhere within the colon. There appears to be eccentric wall thickening along the descending colon, for example, axial images 3 7 and 38 with mild pericolonic fat stranding here. Bladder is urine distended. Uterus not well seen. Either surgically absent or small postmenopausal. N o abnormal fluid collection in the pelvis or pelvic lymphadenopathy seen. Bones: Moderate degenerative changes right hip and [id number] left hip. There is hypertrophic f acet arthropathy throughout the lumbar spine with grade 1 anterolisthesis L4-L5. IMPRESSION: 1. SLIGHT ECCENTRIC WALL THICKENING ALONG A LONG SEGMENT OF DESCENDING COLON WITH MILD PERICOLONIC SO FT TISSUE STRANDING. CORRELATE FOR NONSPECIFIC DESCENDING COLITIS. NO ABSCESS OR FREE AIR OR SIGNIFIC ANT DIVERTICULOSIS SEEN ALONG HERE. 2. TINY HIATAL HERNIA. MODERATE STOOL IN THE RIGHT SIDE OF THE COLON.
[2023-03-26 07:45] VITALS: BP 140/80; RESP 16
[2023-03-26 08:35] VITALS: PULSE 85
== END 2023-03-26 08:11 | disposition home or self-care (01) ==
LOC: EC 04:30
DX: R10.32 Left lower quadrant pain (principal); J45.909 Unspecified asthma, uncomplicated; E03.9 Hypothyroidism, unspecified; Z79.890 Hormone replacement therapy; Z79.899 Other long term (current) drug therapy; Z88.0 Allergy status to penicillin; Z90.49 Acquired absence of other specified parts of digestive tract; Z87.891 Personal history of nicotine dependence
CPT/HCPCS: 36415; 80053; 83605; 83690; 85025; 81003; 74177; 99284; 96374; 96361 ×2; J2270; Q9967